=== PATIENT | male | born 1960 | race Caucasian/White ===

== ENCOUNTER 2022-03-18 18:10 | Emergency (ER) | payer OTHER ==
[2022-03-18 19:02] LABS: HEMOGLOBIN 15.9 gm/dl (14.0-17.5); RED BLOOD COUNT 5.36 M/UL (4.20-5.50); WHITE BLOOD COUNT 7.7 K/UL (4.5-11.0)
[2022-03-18 19:48] LABS: BUN/CREATININE RATIO 21 (0-10)
[2022-03-18] MEDS ORDERED: OMNICEF 300 MG300 MG PO (22:10)
[2022-03-18] MEDS ORDERED: FLOMAX0.4 MG PO (22:32)
[2022-03-21 21:11] LABS: CHLAMYDIA TRACHOMATIS, NAA Negative (Negative); NEISSERIA GONORRHOEAE, NAA Negative (Negative)
== END 2022-03-18 22:48 | disposition home or self-care (01) ==
LOC: ER1 18:10
PROVIDERS: Physician Assistant
DX: R19.7 Diarrhea, unspecified (principal); R30.0 Dysuria; R53.1 Weakness; Z86.73 Personal history of transient ischemic attack (TIA), and cerebral infarction without residual deficits
CPT/HCPCS: 80053; 80307; 81001; 82550; 82553; 83605; 83690; 84484; 85025; 87086; 96374; 99284; J1885; Q9967